=== PATIENT | male | born 1955 | race Caucasian/White ===

== ENCOUNTER → 2020-10-22 14:17 | Outpatient (BNVA) | payer OTHER, SELFPAY | PROVIDERS: Visit Provider Nurse Practitioner Family | DX: Z20.822 Contact with and (suspected) exposure to COVID-19 (principal); J06.9 Acute upper respiratory infection, unspecified | CPT/HCPCS: 87635 ==

== ENCOUNTER 2022-04-12 12:05 | Outpatient (CLI) | payer OTHER, SELFPAY ==
--- NOTE | 2022-04-12 | ECG_ITS ---
[facility] Test Date: 2022-04-12 Pat Name: Ankush Murphy Department: Room: Gender: Male Film Color Tester: : 1955 Requested By: Maty Espinoza Order Number: [id number] Jaziel MD: Mick Gar M.D. Interpretive Statements NAME OF STUDY: TREADMILL STRESS TEST INDICATION: [Chest Pain] EXERCISE DATA: The patient was exercised by Duane protocol. Baseline heart rate was 77 beats per minute. Baseline blood pressure was 140/83 millimeters of mercury. Target heart rate was 131 beats per minute. Maximum heart rate achieved was 156 which was 119% of the target heart rate. Blood pressure could not be recorded during the stress test. Total exercise time was 9 minutes. Maximum METs achieved was 10.2. The reason for ending the test was completion of the protocol. The patient complained of shortness of breath during the stress test, which then resolved at the end of the test. ELECTROCARDIOGRAM: BASELINE: Showed sinus rhythm, normal axis, no significant ST-T changes at the baseline noted. [] EXERCISE: At the peak exercise level, [] [address] depressions were noted in leads II to III and aVF. RECOVERY: During the recovery period, heart rate dropped appropriately. ST depressions were persistent. [] CONCLUSION: 1. Exercise capacity good 2. Heart rate response was appropriate. 3. Blood pressure response was not recorded 4. Symptoms not suggestive of ischemia. 5. Stress test is abnormal and suggestive of ischemia with [address] depressions noted in inferior leads. Electronically Signed On 04-21-2022 11:49:30 FULFILLMENT MAIL CLERK by Mick Gar M.D. [id number]
[2022-04-12 12:47] VITALS: BMI 25.5
[2022-04-12 13:31] VITALS: BP 97/79; PULSE 107
== END 2022-04-12 12:06 | disposition home or self-care (01) ==
PROVIDERS: PCP Nurse Practitioner; Visit Provider Nurse Practitioner
DX: R07.9 Chest pain, unspecified (principal)
CPT/HCPCS: 93017

== ENCOUNTER → 2023-09-12 10:35 | Outpatient (BNVA) | payer OTHER, SELFPAY | PROVIDERS: PCP Nurse Practitioner; Referring Provider Nurse Practitioner Family; Visit Provider Internal Medicine Cardiovascular Disease | DX: R07.9 Chest pain, unspecified (principal) | CPT/HCPCS: 93005 ==

== ENCOUNTER → 2023-09-20 09:01 | Outpatient (BNVA) | payer OTHER, SELFPAY | PROVIDERS: PCP Nurse Practitioner; Referring Provider Nurse Practitioner; Visit Provider Specialist | DX: M25.562 Pain in left knee (principal) | CPT/HCPCS: 73560; 73565; 99204 ==

== ENCOUNTER 2023-10-06 11:45 | Outpatient (CLI) | payer OTHER, SELFPAY ==
--- NOTE | 2023-10-06 11:45 | USCV_ITS ---
Ankush Murphy Age: 68 Gender: M : 1955 Exam Date: 10/06/2023 11:53 Ordering Phys: Xenia Parish MD ([email or web address]) Technologist: NELSY [place] [facility] [place]: MURMUR BP: 127 / 8068 HR: 65 Rhythm: Sinus Technical Quality: Adequate MEASUREMENTS (Male / Female) Normal Values 2D ECHO LV Diastolic Diameter PLAX 4.7 cm 4.2 - 5.9 / 3.9 - 5.3 cm IVS Diastolic Thickness 1.1 cm 0.6 - 1.0 / 0.6 - 0.9 cm IVS Systolic Thickness 1.7 cm LVPW Diastolic Thickness 2.0 cm 0.6 - 1.0 / 0.6 - 0.9 cm LVPW Systolic Thickness 2.7 cm LVOT Diameter 2.0 cm LV Ejection Fraction 2D Teich 57.8 % LV Ejection Fraction MOD 4C 64.8 % LV Ejection Fraction MOD 2C 56.8 % LV Ejection Fraction 2C AL 57.9 % LA Diameter 3.4 cm RA Systolic Volume 4C AL 21.1 ml RA Systolic Volume 4C MOD 20.5 ml LA Sys Volume AL 29.9 cm cubed LA Sys Volume Index AL 14.6 cm cubed/m squared Aorta at Sinotubular Diameter 2.4 cm IVC Diameter 1.8 cm M-MODE LA Ao Ratio MM 1.1 AV Cusp Separation MM 1.7 cm DOPPLER AV Peak Velocity 167.3 cm/s LVOT Peak Velocity 120.0 cm/s AV Area Cont Eq vti 2.2 cm squared AV Area Cont Eq pk 2.3 cm squared MV Peak Velocity 93.0 cm/s MV Area PHT 2.6 cm squared Mitral E to A Ratio 0.9 TR Peak Velocity 194.0 cm/s TR Peak Gradient 15.1 mmHg TR Mean Velocity 144.0 cm/s TR Mean Gradient 9.1 mmHg TR Velocity Time Integral 53.6 cm TV Peak E Velocity 49.0 cm/s Right Atrial Pressure 3.0 mmHg Pulmonary Artery Systolic Pressu 18.1 mmHg PV Peak Velocity 221.0 cm/s RV Ejection Time 0.3 s FINDINGS Left Ventricle Normal left ventricular size and systolic function, EF 60%.no regional wall motion abnormalities. Mild left ventricular hypertrophy. Grade I/IV diastolic dysfunction (abnormal relaxation filling pattern), normal to mildly elevated filling pressures. Right Ventricle The right ventricle is normal in size and function. Right Atrium The right atrium is normal in size. Left Atrium The left atrium is normal in size. Mitral Valve No gross abnormalities noted Aortic Valve Thickened aortic valve. Features of aortic valve sclerosis Tricuspid Valve No gross abnormalities noted Pulmonic Valve Peak pulmonic velocity of 2.2 m/s with a peak gradient of 20 and a mean gradient of 11 mmHg-features of mild pulmonary valve stenosis. Pericardium Normal pericardium without effusion. Aorta Normal ascending aorta dimension. IVC The inferior vena cava appears normal. CONCLUSIONS Normal left ventricular size and systolic function, EF 60%. No regional wall motion abnormalities. Mild left ventricular hypertrophy. Grade I/IV diastolic dysfunction (abnormal relaxation filling pattern), normal to mildly elevated filling pressures. Features of aortic valve sclerosis. Mild pulmonic valve stenosis with a peak velocity of 2.2 m/s, peak gradient of 20 and a mean gradient of 11 mmHg There is no pericardial effusion. There are no intracardiac masses. No similar previous studies are available for comparison Dr Xenia Parish MD [facility] (Electronically Signed) Final Date: 06 October 2023 22:44 S
== END 2023-10-06 11:46 | disposition home or self-care (01) ==
PROVIDERS: PCP Nurse Practitioner; Visit Provider Internal Medicine Cardiovascular Disease
DX: I50.30 Unspecified diastolic (congestive) heart failure (principal); R06.09 Other forms of dyspnea
CPT/HCPCS: 93306; 99204; 99205

== ENCOUNTER → 2023-12-13 09:55 | Outpatient (BNVA) | payer OTHER, SELFPAY | PROVIDERS: PCP Nurse Practitioner; Visit Provider Internal Medicine Cardiovascular Disease | DX: I35.8 Other nonrheumatic aortic valve disorders (principal); R03.0 Elevated blood-pressure reading, without diagnosis of hypertension; E78.5 Hyperlipidemia, unspecified; F12.10 Cannabis abuse, uncomplicated; F17.200 Nicotine dependence, unspecified, uncomplicated | CPT/HCPCS: 99214 ==

== ENCOUNTER → 2024-08-27 10:57 | Outpatient (BNVA) | payer OTHER, SELFPAY | PROVIDERS: PCP Nurse Practitioner; Visit Provider Nurse Practitioner Family | DX: E88.2 Lipomatosis, not elsewhere classified (principal); L82.1 Other seborrheic keratosis; L57.8 Other skin changes due to chronic exposure to nonionizing radiation; L81.4 Other melanin hyperpigmentation; Z80.8 Family history of malignant neoplasm of other organs or systems; S30.860A Insect bite (nonvenomous) of lower back and pelvis, initial encounter; X58.XXXA Exposure to other specified factors, initial encounter; B07.8 Other viral warts; L53.8 Other specified erythematous conditions; R20.8 Other disturbances of skin sensation; L29.89 Other pruritus; Z78.9 Other specified health status; D48.5 Neoplasm of uncertain behavior of skin | CPT/HCPCS: 10120; 11102; 17110; 99203 ==

== ENCOUNTER → 2024-09-16 08:10 | Outpatient (BNVA) | payer OTHER, SELFPAY | PROVIDERS: PCP Nurse Practitioner; Visit Provider Dermatology | DX: D48.5 Neoplasm of uncertain behavior of skin (principal); B07.8 Other viral warts; R20.8 Other disturbances of skin sensation; L53.8 Other specified erythematous conditions | CPT/HCPCS: 11642; 12051; 17110 ==

== ENCOUNTER 2024-10-23 10:32 | Outpatient (CLI) | payer OTHER, SELFPAY | END 2024-10-23 10:33 | disposition home or self-care (01) | LOC: SLEEP 10:34 | PROVIDERS: PCP Nurse Practitioner; Visit Provider Nurse Practitioner | DX: G47.33 Obstructive sleep apnea (adult) (pediatric) (principal) | CPT/HCPCS: G0399 ==

== ENCOUNTER → 2024-12-25 13:53 | Outpatient (BNVA) | payer OTHER, SELFPAY | PROVIDERS: PCP Nurse Practitioner; Visit Provider Internal Medicine Cardiovascular Disease | DX: I35.8 Other nonrheumatic aortic valve disorders (principal); I37.0 Nonrheumatic pulmonary valve stenosis; R03.0 Elevated blood-pressure reading, without diagnosis of hypertension; E78.5 Hyperlipidemia, unspecified; F12.10 Cannabis abuse, uncomplicated | CPT/HCPCS: 99214 ==